=== PATIENT | male | born 1960 ===

== ENCOUNTER 2019-10-16 10:39 | Emergency (ER) | payer OTHER ==
[~2019-10-16] VITALS: Ht 182.9 cm; Wt 110.2 kg
[2019-10-16] MEDS ORDERED: ZANAFLEX4 M1 PO (11:03)
[2019-10-16] MEDS ORDERED: FORTAMET1000 MG (11:03)
[2019-10-16] MEDS ORDERED: IBU800 MG PO (11:04)
== END 2019-10-16 11:39 | disposition home or self-care (01) ==
LOC: ER 10:39
DX: M54.5 Low back pain (principal)